=== PATIENT | female | born 1955 | race Caucasian/White ===

== ENCOUNTER 2016-10-08 15:58 | Outpatient (CLI) | payer OTHER ==
--- NOTE | 2016-10-08 18:42 | Diagnostic Imaging Report ---
REMIGIO REYNAGA [facility] [address] [facility] [address] [place] [address]. [id number] Report Submission Date: Oct 08, 2016 4:41:35 PM CDT Patient Study Name: FLORENCE RENDON Date: Oct 08, 2016 4:17:42 PM CDT Modality Type: CR Gender: F Description: LOWER EXTREMITY : 57 Institution: [facility] Physician: REMIGIO REYNAGA Left tibia fibula 2 views History: Lump in posterior mid calf after injury Findings: The left total knee arthroplasty is observed in anatomic alignment. There is no evidence of fracture or dislocation. The palpable lump on physical exam is not visible radiographically. Impression: Knee arthroplasty. Electronically signed on Oct 08, 2016 4:41:35 PM CDT by: Дмитрий NICE
== END 2016-10-08 16:00 ==
LOC: RAD 15:58
PROVIDERS: ATTEND Family Medicine
DX: R22.42 Localized swelling, mass and lump, left lower limb (principal)
CPT/HCPCS: 73590

== ENCOUNTER 2017-05-12 16:05 | Outpatient (CLI) | payer OTHER | END 2017-05-12 16:06 | LOC: LABRHC 16:05 | PROVIDERS: ATTEND Family Medicine | DX: R30.0 Dysuria (principal) | CPT/HCPCS: 87086 ==

== ENCOUNTER 2019-05-06 09:14 | Outpatient (CLI) | payer OTHER ==
--- NOTE | 2019-05-06 09:39 | Diagnostic Imaging Report ---
PATIENT MR#: [id number] PATIENT PATIENT NAME: ADAM RENDON DATE OF : 1955 REFERRING PHYSICIAN: Meenu Wray EXAM DATE: 05/06/2019 ACCESSION NUMBER: [id number] EXAM DESCRIPTION: CHEST 2VIEW Exam: Chest two views. History: Cough. No previous studies are available for comparison. Lung mirza are well aerated without ramona consolidation or effusion. Heart and mediastinal contour are normal. No bony abnormalities are seen. Impression: No ramona consolidation or effusion. Read by: Dr. Boogie Ridley Transcribed by: Transcribed Date: Electronically signed by: Dr. Boogie Rdiley Date signed: 05/06/2019 9:38:55 AM
== END 2019-05-06 09:24 ==
LOC: RAD 09:14
PROVIDERS: ATTEND Nurse Practitioner Family
DX: J06.9 Acute upper respiratory infection, unspecified (principal)
CPT/HCPCS: 71046